=== PATIENT | female | born 1970 | race Caucasian/White ===

== ENCOUNTER → 2016-05-23 | Outpatient (CLI) | payer BC ==
[~2016-05-23] MED LIST: CEPH-583 PO; ENZY1TAB5 PO; MILK1TAB PO; NEBI20TA2 PO; PHEN-779 PO; SELE200T27 PO; [UNRECOGNIZED DRUG - CODE] PO
== END ==
LOC: LABN 10:01
PROVIDERS: ATTEND Physician Assistant
DX: N92.6 Irregular menstruation, unspecified (principal); R53.83 Other fatigue
CPT/HCPCS: 82530; 82627; 82670; 84402

== ENCOUNTER → 2016-06-29 | Outpatient (CLI) | payer BC ==
--- NOTE | 2016-06-29 11:25 | DI ---
Indication: ITS.REASON: E03.9 HYPOTHYROIDISM; E06.3 AUTOIMMUNE THYROIDITIS PROCEDURE: US THYROID: Encounter: Subsequent Comparison: Thyroid ultrasound dated March 10, 2013 Technique: Grayscale and color Doppler sonographic imaging of the thyroid gland was performed. Findings: Right thyroid lobe is small without discrete nodule or mass. Thyroid isthmus is also decreased in size at 0.1 cm in diameter. Left thyroid lobe is homogeneously small without mass. Normal Doppler flow seen to both lobes. Right lobe measures 5.5 x 1.3 x 0.9 cm. Left lobe measures 4.5 x 1 x 1 cm in size. Impression: Small overall size of the thyroid gland without focal nodule or mass. .
== END ==
LOC: IMA 08:07
PROVIDERS: ATTEND Physician Assistant
DX: E03.9 Hypothyroidism, unspecified (principal); E06.3 Autoimmune thyroiditis